=== PATIENT | female | born 1955 | race Caucasian/White ===

== ENCOUNTER 2016-12-02 17:29 | Emergency (ER) | payer OTHER ==
[2016-12-02] MEDS ORDERED: HYDROcodone/Acetaminophen 10/325 mg Tablet ONE (17:40)
[2016-12-02] MEDS ORDERED: Ibuprofen 800 MG TAB ONE (17:40)
--- NOTE | 2016-12-02 19:50 | RAD ---
LEFT WRIST THREE VIEWS: 12/02/16 No fracture was seen. The carpal bones all appeared intact. The distal radius and ulna appear intact . The carpal relations seem normal. IMPRESSION: No acute findings. POS: HOME
== END 2016-12-02 18:25 | disposition home or self-care (01) ==
LOC: BURERS 17:29
DX: S60.212A Contusion of left wrist, initial encounter (principal); X58.XXXA Exposure to other specified factors, initial encounter
CPT/HCPCS: 99283